=== PATIENT | male | born 1955 | race Caucasian/White ===

== ENCOUNTER 2021-04-23 11:34 | Emergency (ER) | payer MEDICARE, MEDICAID ==
[~2021-04-23] VITALS: Ht 167.6 cm; Wt 81.7 kg
[~2021-04-23 11:34] MED LIST: CARAFATE 1 GM TA1 G1 PO; PROTONIX40 M1 PO; UNICOMPLEX M TA1 TA1 PO
[2021-04-23 12:49] LABS: ABSOLUTE BASOPHILS 0.1 thou/uL (0.0-0.2); ABSOLUTE EOSINOPHILS 0.1 thou/uL (0.0-0.7); ABSOLUTE LYMPHOCYTES 1.3 thou/uL (0.8-5.3); ABSOLUTE MONOCYTES 0.6 thou/uL (0.0-1.2); ABSOLUTE NEUTROPHILS 5.1 thou/uL (1.6-8.1); EOSINOPHILS 1.8 %; HEMATOCRIT 50.3 % (42.0-52.0); HEMOGLOBIN 16.9 gm/dL (14.0-18.0); LYMPHOCYTES 17.9 %; MCHC 33.6 g/dL (28.0-37.0); MCV 101.2 fL (80.0-100.0); MONOCYTES 8.7 %; MPV 8.3 fl. (7.2-11.1); NUCLEATED RBCS 0 /100WBC; PLATELET COUNT* 153 thou/uL (150-400); POLYS 70.6 %; RBC 4.97 mil/uL (4.50-6.00); RDW-CV 13.8 % (10.5-14.5); WBC 7.2 thou/uL (4.0-11.0)
[2021-04-23 12:59] LABS: CALCIUM 9.1 mg/dL (8.5-10.1); CREATININE 0.7 mg/dL (0.6-1.3); POTASSIUM 3.9 mmol/L (3.5-5.1)
[2021-04-23 13:03] LABS: ALBUMIN 3.3 g/dL (3.4-5.0); TOTAL BILIRUBIN 0.9 mg/dL (<0.1-1.0); TOTAL PROTEIN 7.6 g/dL (6.4-8.2)
[2021-04-23 14:08] LABS: URINE BILIRUBIN NEGATIVE (Negative); URINE BLOOD TRACE (Negative); URINE CLARITY CLEAR; URINE COLOR YELLOW; URINE GLUCOSE-RANDOM 3+ (Negative); URINE KETONES NEGATIVE (Negative); URINE LEUKOCYTES-REFLEX NEGATIVE (Negative); URINE NITRITE-REFLEX NEGATIVE (Negative); URINE PROTEIN 1+ (Negative); URINE SPECIFIC GRAVITY >= 1.030 (1.005-1.030); URINE UROBILINOGEN 0.2 E.U./dl (0.2-1.0)
[2021-04-23] MEDS ORDERED: FLEXERIL PO (15:06)
[2021-04-23] MEDS ORDERED: AUGMENTIN 875-1 EACH PO (15:06)
[2021-04-23] MEDS ORDERED: VENTOLIN HFA 1818 GM INH (15:06)
--- NOTE | 2021-04-23 15:07 | EKG ---
[place] [address] ELECTROCARDIOGRAM REPORT Name: ARLEEN MCWILLIAMS Room: [facility]#: [id number] Admission: 04/23/21 Attend Phys: Discharge: Date of : 57 Date of Service: 04/23/21 1405 Report #: [id number] THIS REPORT FOR: //name// [facility] ED Test Date: 2021-04-23 Test Time: 14:05:34 Pat Name: ARLEEN MCWILLIAMS Department: Room: Gender: Nursing Program Manager: : [id number] Requested By: Edward Bass Order Number: [id number] MD: Surya Galvan Measurements Intervals [place] Rate: 70 P: -38 SC: 172 QRS: -6 QRSD: 115 T: 8 QT: 371 QTc: 401 Interpretive Statements Sinus rhythm Nonspecific intraventricular conduction delay Borderline ST depression, anterolateral leads Compared to ECG 08/21/2016 10:36:59 Sinus tachycardia no longer present Electronically Signed On 04-23-2021 15:07:15 TOOL MAINTENANCE TECHNICIAN by Surya Galvan [email or web address] <ELECTRONICALLY SIGNED> By: Surya Galvan MD, [facility] 04/23/21 1507 1405 1405 Surya Galvan MD, [facility] /EPI
[2021-04-23 15:21] VITALS: BP 153/90
== END 2021-04-23 15:21 | disposition home or self-care (01) ==
LOC: M.ERS 11:34
PROVIDERS: Emergency Medicine Emergency Medical Services; Nurse Practitioner Family
DX: E11.9 Type 2 diabetes mellitus without complications (principal); Z20.822 Contact with and (suspected) exposure to COVID-19; K74.60 Unspecified cirrhosis of liver; I86.4 Gastric varices; R91.8 Other nonspecific abnormal finding of lung field; K76.6 Portal hypertension; F17.210 Nicotine dependence, cigarettes, uncomplicated; Z79.899 Other long term (current) drug therapy

== ENCOUNTER → 2021-05-22 | Outpatient (CLI) | payer MEDICARE, MEDICAID ==
[~2021-05-22] MED LIST changes: +AUGMENTIN 875-1 EACH PO; +FLEXERIL PO; +VENTOLIN HFA 1818 GM INH
== END ==
LOC: M.ULTRA 08:34
PROVIDERS: ATTEND Nurse Practitioner Family
DX: Z01.812 Encounter for preprocedural laboratory examination (principal); Z20.822 Contact with and (suspected) exposure to COVID-19; K76.89 Other specified diseases of liver; K76.6 Portal hypertension; K74.60 Unspecified cirrhosis of liver; R93.3 Abnormal findings on diagnostic imaging of other parts of digestive tract

== ENCOUNTER 2021-06-29 10:02 | Emergency (ER) | payer MEDICARE, MEDICAID ==
[~2021-06-29] VITALS: Ht 167.6 cm; Wt 63.5 kg
[2021-06-29] MEDS ORDERED: TESSALON PERLE100 MG PO (11:06)
[2021-06-29 11:16] VITALS: BP 181/91
== END 2021-06-29 11:17 | disposition home or self-care (01) ==
LOC: M.ERS 10:02
DX: J06.9 Acute upper respiratory infection, unspecified (principal); Z20.822 Contact with and (suspected) exposure to COVID-19; F17.210 Nicotine dependence, cigarettes, uncomplicated; Z79.51 Long term (current) use of inhaled steroids; Z79.899 Other long term (current) drug therapy